=== PATIENT | female | born 1955 | race Caucasian/White ===

== ENCOUNTER 2018-04-26 08:45 | Inpatient (IN) | payer OTHER ==
[2018-05-22] MEDS ORDERED: Sodium Chloride 0.9% 100 ML ONE (06:14)
[2018-05-22] MEDS ORDERED: Tranexamic Acid 1,000 MG/10 ML VIAL ONE (06:14)
[2018-05-22] MEDS ORDERED: Fentanyl 100 MCG/2 ML VIAL ONE ×3 (06:28→09:50)
[2018-05-22] MEDS ORDERED: Midazolam HCl 2 mg/2 ml Vial ONE (06:28)
[2018-05-22] MEDS ORDERED: Lidocaine 1% (PF) 30 ML VIAL ONE (06:28)
[2018-05-22] MEDS ORDERED: Ropivacaine HCl/PF 250 ML in Premix Bag 1 BAG NERVE BLCK SCH (07:23)
[2018-05-22] MEDS ORDERED: Ondansetron PF 4 MG/2 ML Vial IVP PRN ×2 (07:23→09:10)
[2018-05-22] MEDS ORDERED: Zolpidem Tartrate 5 MG TAB PO PRN ×2 (07:23→09:10)
[2018-05-22] MEDS ORDERED: Promethazine HCl 25 MG/ML VIAL IM PRN ×3 (07:23→09:10)
[2018-05-22] MEDS ORDERED: traMADol HCl 50 MG TAB PO PRN ×2 (07:23)
[2018-05-22] MEDS ORDERED: HYDROcodone/Acetaminophen 10/325 mg Tablet PO PRN (07:23)
[2018-05-22] MEDS ORDERED: Fentanyl 100 MCG/2 ML VIAL IV PRN (07:26)
[2018-05-22] MEDS ORDERED: Ondansetron HCl/PF 4 MG/2 ML Vial IVP PRN (08:21)
[2018-05-22] MEDS ORDERED: Promethazine HCl 25 MG/ML VIAL SLOW IVP PRN (08:21)
[2018-05-22] MEDS ORDERED: diphenhydrAMINE 25 MG CAP PO PRN (09:10)
[2018-05-22] MEDS ORDERED: Acetaminophen 325 MG TAB PO PRN (09:10)
[2018-05-22] MEDS ORDERED: Meperidine HCl/PF 25 MG/ML VIAL ONE (09:14)
[2018-05-22] MEDS ORDERED: Ketorolac Tromethamine 30 MG/ML VIAL ONE (09:33)
--- NOTE | 2018-05-22 09:59 | RAD ---
RIGHT KNEE TWO VIEWS: HISTORY: Status post right knee arthroplasty. COMPARISON: None. FINDINGS: Two views of the right knee show the patient to be status post right knee arthroplasty without periha rdware lucency or fracture. Air in the soft tissues is from recent surgery. IMPRESSION: Status post right knee arthroplasty without evidence of complication. POS: [facility]
--- NOTE | 2018-05-22 12:07 | OP ---
DATE OF PROCEDURE: 05/22/2018 PREOPERATIVE DIAGNOSIS: End-stage tricompartmental osteoarthritis, right knee. POSTOPERATIVE DIAGNOSIS: End-stage tricompartmental osteoarthritis, right knee. OPERATIVE PROCEDURE: Cemented cruciate sparing computer-assisted navigated right total knee arthroplasty. EMTS: Zander Luna PA-C ANESTHESIA: General via LMA augmented with indwelling femoral block and a single shot sciatic block. COMPONENTS USED: [facility] Triathlon cemented cruciate sparing size 4 femoral component with a cemented cruciate sparing primary size 4 tibial baseplate, 9 mm polyethylene fixed bearing insert, A29 patella button. 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 DRAINS: None. TOURNIQUET TIME: 60 minutes at 300 mmHg. INPUT: 1 L crystalloid. OUTPUT: 100 mL clear yellow urine. SPECIMENS: None. COMPLICATIONS: None. COUNTS: Correct. INDICATION FOR SURGERY: Laura is a 62-year-old white female, who has had progressive right knee pain and problem with standing and walking for the last 5 to 7 years. She has failed conservative management and elected to proceed with total knee arthroplasty as definitive treatment for pain. PROCEDURE IN DETAIL: After informed consent was obtained in the preoperative holding area, the patient was taken to the operative suite where general anesthesia was induced. Once adequate level of general anesthesia was obtained, the patient was positioned and a well-padded tourniquet was placed around the right proximal thigh. The right lower extremity was then prepped and draped in the usual sterile fashion. Prior to exsanguination, a time-out was called and all members of the surgical team agreed upon site, surgeon, and patient. The extremity was then exsanguinated and the tourniquet was raised. A midline longitudinal incision was then made directly over the patella extending 2 fingerbreadths above the superior pole of the patella and 2 fingerbreadths inferior to the inferior patellar pole of the patella. Deeper subcutaneous layers were dissected sharply and local bleeding was controlled with Bovie electrocautery. A quad tendon longitudinal split was then made sharply and a median parapatellar arthrotomy was carried out both sharp and with Bovie electrocautery, carried down to 1 fingerbreadth medial to the tibial tubercle. The knee was then placed into flexion and the patella was everted nicely, and a copious fat pad ectomy was performed, allowing for greater exposure of the tibia. The computer-assisted distal femoral fiducial was then placed and pinned firmly, and the distal femoral cutting guide was pinned firmly into place. The oscillating saw was then used to remove the appropriate amount of bone. The 4-in-1 cutting block was then placed on the distal femur and the oscillating saw was used to remove the appropriate amount of bone off the anterior, posterior, and chamfer cuts. After completion of bone cuts, the anterior cruciate ligament was resected sharply and the posterior cruciate ligament retractor was placed and the tibia was subluxed for better exposure. Partial meniscectomies were carried out, and the tibial computer-assisted fiducial was pinned, and the cutting guide was placed. Oscillating saw was then used to remove the bone, with Hohmann retractors used to take care and protect the collateral ligaments. After the tibial resection was performed, a laminar tank washer was placed in between the freshened bone cuts. The knee placed at 90 degrees and further bilateral meniscectomies were carried out, and the curved osteotome and curettage were used to remove any excess bone spurs in the posterior compartment. The trial femoral component, tibial baseplate were placed with the appropriate polyethylene trial insert with an appropriate polyethylene spacer and patellar button. The knee was taken through full range of motion with flexion and extension from 0 to 90 degrees and patellar broach squarely in the trochlea without any squinting or subluxation noted. The knee was also stable to varus and valgus stressing at 0, 15, 45, and 90 degrees of flexion. The drawer was negative. All trial components were then removed and the keel punch was used to provide the appropriate defect in the tibia with a mallet. The freshened bone cuts were copiously irrigated with pulsatile lavage of about 1.5 L to remove all excess debris. The freshened bone cuts were then dried with suction and lap sponge. The knee was placed in flexion and retractors were placed to provide access to all bone cuts. Tobramycin-impregnated methyl methacrylate cement was then placed on the freshened bone cuts and implants which were malleted firmly into place. Curettage and [place] elevators were used to remove any excess bone cement. The knee was placed into full extension and the patellar button was placed under compression, and the cement was allowed to cure. Once completed, the components were again taken through full range of motion and copious irrigation of the knee was carried out with another liter of normal saline. All components were inspected fully with full range of motion and varus and valgus stressing. There was no laxity noted and full extension was observed clinically. Primary closure was accomplished with #2 interrupted Vicryl stitch of the arthrotomy defect. This was oversewn with a #2 running Quill barbed stitch. The subcutaneous layer was then closed with a running 0 barbed Monocryl stitch and skin closure accomplished with a running subcuticular 3-0 Monocryl barbed Quill stitch and augmented with cement on the skin. Tourniquet was lowered. Good spontaneous return of distal pulses was noted clinically and a sterile dressing was applied to the incision. The procedure was terminated without any complications. The patient was awakened in the operative suite and taken to the recovery room in stable condition. Job ID: [id number]
[2018-05-22] MEDS ORDERED: Ropivacaine 0.2% HCl/PF (40 MG/20 ML VIAL) ONE (14:44)
[2018-05-22] MEDS ORDERED: Ropivacaine 0.5% HCl/PF (150 MG/30 ML VIAL) ONE (14:44)
[2018-05-22] MEDS ORDERED: Ondansetron PF 4 MG/2 ML Vial ONE (15:37)
[2018-05-22] MEDS ORDERED: Lidocaine 1% PF 5 ML VIAL ONE (15:37)
[2018-05-22] MEDS ORDERED: PROPOFOL 200 MG/20 ML VIAL ONE (15:37)
[2018-05-22] MEDS: CEFAZOLIN 2 GM in Premix Bag 1 BAG IVPB SCH ×2 (15:54→23:42)
[2018-05-22 17:34] VITALS: BMI 48.2
[2018-05-22] MEDS: Ketorolac Tromethamine 30 MG/ML VIAL IVP SCH ×3 (17:46→23:43)
[2018-05-22] MEDS: Sodium Chloride 0.9% 1,000 ML IV SCH ×2 (17:50→20:35)
--- NOTE | 2018-05-22 18:15 | CON ---
DATE OF CONSULTATION: 05/22/2018 HISTORY OF PRESENT ILLNESS: The patient is a 62-year-old female status post total right knee replacement surgery. The patient is status post surgery today. She has no medical complaints. No chest pain. No shortness of breath. No nausea, vomiting, or diarrhea. She states that she is actually feeling quite well. The patient tolerated her surgery quite well. Otherwise, she has no medical complaints. ALLERGIES: SHE HAS NO KNOWN ALLERGIES. CURRENT MEDICATIONS: 1. Escitalopram. 2. Estrace. 3. Hydrochlorothiazide. PAST MEDICAL HISTORY: Positive for depression, hypertension, menopause, as well as the above-noted osteoarthritis of her knee. REVIEW OF SYSTEMS: GI: Negative. : Negative. CARDIOVASCULAR: Otherwise negative. RESPIRATORY: Otherwise negative. PHYSICAL EXAMINATION: VITAL SIGNS: Her blood pressure is 120/74, pulse 88, respirations 16, and O2 saturation 98% on room air. GENERAL: She is alert and active, in no acute distress. HEENT: Normocephalic and atraumatic. Extraocular muscles are intact. Sclerae and conjunctivae clear. NECK: Supple. Full range of motion. No masses. LUNGS: Clear. HEART: Reveals a regular rate and rhythm without murmurs, gallops, or rubs. ABDOMEN: Soft and nontender. Bowel sounds are present and active. No hepatosplenomegaly is noted. There is no evidence of any rebound or guarding is noted at this time. NEUROLOGIC: She is alert and oriented x3. Cranial nerves 2 through 12 appear to be intact. Motor power, strength testing appears to be normal throughout all extremities. IMPRESSION: She is status post right total knee replacement surgery, she is doing well, she is stable postoperatively. PLAN: The patient will be continued to be followed by me medically. Do not anticipate any medical problems at this time. Job ID: [id number]
[2018-05-22] MEDS: Aspirin 81 mg Enteric Coated Tablet PO SCH (20:28)
[2018-05-23 04:54] LABS: Hemoglobin 12.4 g/dL (12.0-16.0); Mean Corpuscular HGB CONC 32.5 g/dL (32.0-36.0); Mean Corpuscular Hemoglobin 32.3 pg (27.0-31.0); Mean Corpuscular Volume 99.3 fL (78.0-98.0); Mean Platelet Volume 8.5 fL (7.4-10.4); Platelet Count 209 thou/uL (130-400); RBC Distribution Width 13.1 % (11.5-14.5); Red Blood Cell (RBC) Count 3.83 mill/uL (4.20-5.40); White Blood Cell (WBC) Count 7.1 thou/uL (4.8-10.8)
[2018-05-23] MEDS: Sodium Chloride 0.9% 1,000 ML IV SCH ×2 (05:01→16:08)
[2018-05-23] MEDS: Ketorolac Tromethamine 30 MG/ML VIAL IVP SCH ×3 (05:02→17:47)
[2018-05-23] MEDS: Hydrochlorothiazide 25 MG TAB PO SCH (08:03)
[2018-05-23] MEDS: Senokot S 8.6-50 MG TAB PO SCH ×2 (08:03→21:24)
[2018-05-23] MEDS: Escitalopram Oxalate 10 mg Tablet PO SCH (08:03)
[2018-05-23] MEDS: Estradiol 1 MG TAB PO SCH (08:03)
[2018-05-23] MEDS: Ferrous Gluconate 324 MG TAB PO SCH ×2 (08:03→17:47)
[2018-05-23] MEDS: HYDROcodone/Acetaminophen 10/325 mg Tablet PO PRN ×2 (08:04→13:52)
[2018-05-23] MEDS: Aspirin 81 mg Enteric Coated Tablet PO SCH ×2 (08:04→21:24)
[2018-05-23] MEDS: Multivitamin W/ Minerals 1 TAB PO SCH (08:04)
--- NOTE | 2018-05-23 08:45 | PRG ---
DATE OF CONSULTATION: 05/23/2018 SUBJECTIVE: Ms. Billings is doing well postoperatively. She has no medical complaints. OBJECTIVE: VITAL SIGNS: Blood pressure is 116/72, temperature 98.3. LUNGS: Clear. HEART: Reveals no murmur. LABORATORY DATA: Hemoglobin is 12.4, hematocrit 38.0. IMPRESSION: Stable postoperative course. PLAN: Continue observation medically. Job ID: [id number]
[2018-05-23] MEDS ORDERED: Non-Formulary Item 1 EACH (Multivitamin [Multi-Vitamin Daily] 1 TABLET) PO SCH (09:00)
[2018-05-24] MEDS: Ketorolac Tromethamine 30 MG/ML VIAL IVP SCH ×2 (01:24→06:02)
[2018-05-24] MEDS: Sodium Chloride 0.9% 1,000 ML IV SCH ×2 (01:51→10:50)
[2018-05-24 05:20] LABS: Hemoglobin 11.8 g/dL (12.0-16.0); Mean Corpuscular HGB CONC 33.1 g/dL (32.0-36.0); Mean Corpuscular Hemoglobin 31.9 pg (27.0-31.0); Mean Corpuscular Volume 96.3 fL (78.0-98.0); Mean Platelet Volume 9.7 fL (7.4-10.4); Platelet Count 209 thou/uL (130-400)
[2018-05-24] MEDS: Aspirin 81 mg Enteric Coated Tablet PO SCH (08:27)
[2018-05-24] MEDS: Escitalopram Oxalate 10 mg Tablet PO SCH (08:27)
[2018-05-24] MEDS: Ferrous Gluconate 324 MG TAB PO SCH (08:27)
[2018-05-24] MEDS: Hydrochlorothiazide 25 MG TAB PO SCH (08:27)
[2018-05-24] MEDS: Multivitamin W/ Minerals 1 TAB PO SCH (08:27)
[2018-05-24] MEDS: Estradiol 1 MG TAB PO SCH (08:27)
[2018-05-24] MEDS: Senokot S 8.6-50 MG TAB PO SCH (08:28)
[2018-05-24] MEDS: HYDROcodone/Acetaminophen 10/325 mg Tablet PO PRN ×2 (08:28→12:29)
[2018-05-24 09:59] VITALS: TEMP 98.4
[2018-05-24 12:31] VITALS: BP 106/71
== END 2018-05-24 12:45 | disposition home or self-care (01) | DRG 470 ==
LOC: SURG A 05-22 05:31 → SJJU 05-22 09:52
PROVIDERS: ADMIT Orthopaedic Surgery; ATTEND Orthopaedic Surgery
PROC: 0SRC0J9 Replacement of Right Knee Joint with Synthetic Substitute, Cemented, Open Approach (ICD-10-PCS; principal; 2018-05-22)
DX: M17.11 Unilateral primary osteoarthritis, right knee (principal); F32.9 Major depressive disorder, single episode, unspecified; I10 Essential (primary) hypertension
CPT/HCPCS: 36415; 85027; 86850; 86900; 86901; C1713; C1776; J1885; J2001; J2175; J2250; J2405; J2704; J2795; J3010; J3370; J7050

== ENCOUNTER 2018-05-10 01:19 | Outpatient (CLI) | payer OTHER ==
[2018-05-10 09:55] LABS: #Eosinphils 0.2 thou/uL (0.0-0.7); #Lymphocytes 1.4 thou/uL (1.20-3.40); #Monocytes 0.5 thou/uL (0.11-0.59); #Neutrophils 3.9 thou/uL (1.40-6.50); %Basophils 0.7 % (0.0-1.0); %Eosinophils 2.9 % (0.0-10.0); %Lymphocytes 22.8 % (21.0-51.0); %Monocytes 8.1 % (0.0-10.0); %Neutrophils 65.5 % (42.0-75.0); Hemoglobin 14.5 g/dL (12.0-16.0); Mean Corpuscular HGB CONC 31.6 g/dL (32.0-36.0); Mean Corpuscular Hemoglobin 30.8 pg (27.0-31.0); Mean Corpuscular Volume 97.6 fL (78.0-98.0); Mean Platelet Volume 8.9 fL (7.4-10.4); Platelet Count 274 thou/uL (130-400); RBC Distribution Width 12.9 % (11.5-14.5); Red Blood Cell (RBC) Count 4.72 mill/uL (4.20-5.40); White Blood Cell (WBC) Count 5.9 thou/uL (4.8-10.8)
[2018-05-10 09:57] LABS: Bilirubin Negative (Negative); Blood, Urine Negative (Negative); Clarity CLEAR (Clear); Glucose, Urine (Dipstick) Negative (Negative); Leukocyte Negative (Negative); Nitrite Negative (Negative); Protein, Urine (Dipstick) Negative (Neg-Trace); Urobilinogen 0.2 mg/dL (0.2-1.0)
[2018-05-10 10:00] LABS: Bacteria/HPF None Seen HPF (None Seen); Hyaline Casts/LPF 0-3 HYALINE CAST LPF (0-3 Hyaline); Pathc Cast-AUWi Flag 0.14 (0-2.49); RBC/HPF 0-3 HPF (0-3); Squamous Epithelial None Seen HPF (0-3); WBC/HPF None Seen HPF (0-3)
[2018-05-10 10:01] LABS: INR-International Normal Ratio 0.9; Prothrombin Time 12.4 SEC (12.0-14.7)
[2018-05-10 10:08] LABS: Anion Gap 12 mmol/L (10-20); BUN (Urea Nitrogen) 15 mg/dL (9.8-20.1); Calc. Creatinine Clearance 0 mL/min (70-130); Calcium 10.2 mg/dL (7.8-10.44); Carbon Dioxide 30 mmol/L (22-29); Chloride 103 mmol/L (98-107); Estimated GFR-MDRD 59; Glucose 113 mg/dL (70-105); Potassium 3.7 mmol/L (3.5-5.1); Sodium 141 mmol/L (136-145)
== END 2018-05-10 01:20 | disposition home or self-care (01) ==
LOC: LABBT 01:19
PROVIDERS: ATTEND Orthopaedic Surgery
DX: Z01.818 Encounter for other preprocedural examination (principal); M17.11 Unilateral primary osteoarthritis, right knee
CPT/HCPCS: 80048; 81001; 85025; 85610; 87081; 93005; 93010